=== PATIENT | female | born 1980 | race Caucasian/White ===

== ENCOUNTER 2016-11-15 05:15 | Emergency (ER) | payer BC ==
[2016-11-15] MEDS ORDERED: ORPHENADRINE 60 MG/2 ML AMP ONE (05:47)
[2016-11-15] MEDS ORDERED: DEXAMETHASONE 4 MG/ML VIAL ONE (05:47)
[2016-11-15] MEDS ORDERED: DIAZEPAM 5 MG TAB ONE (06:45)
== END 2016-11-15 08:25 | disposition home or self-care (01) ==
LOC: ER 05:15
DX: G24.3 Spasmodic torticollis (principal)
CPT/HCPCS: 72050; 96372